=== PATIENT | male | born 1960 | race Caucasian/White ===

== ENCOUNTER → 2019-08-20 | Outpatient (CLI) | payer BC ==
[~2019-08-20] MED LIST: ISOVUE-370 76% 100ML VIAL (Q9967) As Ordered ONE
--- NOTE | 2019-08-20 16:36 | REP ---
INDICATION: Question mass lesion PROCEDURE: CT neck with contrast COMPARISON STUDIES: No comparative studies FINDINGS: There is a mass lesion seen on the left, with expansion and enlargement of the left submandibular gland and enlarged and irregular lymph nodes continuous with the sternocleidomastoid muscle on the left near the angle of the mandible. There is also a separate low density mass posterior to the sternocleidomastoid muscle. These findings are above the marker. There is no definite osseous destruction. Oropharynx, nasopharynx, hypopharynx and larynx appear unremarkable. There is mucosal thickening in the left maxillary sinus, paranasal sinuses and mastoid air cells are otherwise clear. Lung apices are unremarkable. Thyroid glands are unremarkable. IMPRESSION: Prominent irregular and nodular mass lesions on the left are continuous with the left submandibular gland and the left sternocleidomastoid muscle. The findings are concerning for malignancy, there appears to be involvement of several prominent lymph nodes on the left. The largest area of malignancy involving the submandibular gland measures approximately 4 cm in each dimension. Malignancy workup suggested. Electronically Signed by Rob Arrieta MD 08/20/2019 04:27 P
== END ==
LOC: M RAD 15:22
PROVIDERS: ATTEND Otolaryngology
DX: R22.1 Localized swelling, mass and lump, neck (principal)
CPT/HCPCS: 70491; Q9967

== ENCOUNTER → 2019-09-13 | Outpatient (REF) | payer BC | LOC: M LAB REF 15:28 | PROVIDERS: ATTEND Otolaryngology | DX: R22.1 Localized swelling, mass and lump, neck (principal) ==

== ENCOUNTER → 2019-10-07 | Outpatient (REF) | payer BC | LOC: M LAB REF 13:37 | PROVIDERS: ATTEND Otolaryngology | DX: C08.0 Malignant neoplasm of submandibular gland (principal); R22.1 Localized swelling, mass and lump, neck ==

== ENCOUNTER → 2019-10-18 | Outpatient (CLI) | payer BC ==
--- NOTE | 2019-10-19 09:40 | REP ---
PET/CT: HISTORY: Staging secondary neoplasm of the face and neck. 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 COMPARISONS: Comparison soft-tissue CT study of the neck is from August 20, 2019. TECHNIQUE: 51 minutes following the intravenous injection of a 8.23 mCi dose of F-18 FDG, three-dimensional PET scintigraphy is acquired from the skull base to the proximal thighs. Triplanar noncontrast CT scanning is acquired through the same anatomic range for attenuation correction, and image registration with scan parameters optimized to minimize radiation exposure to the patient. PET scintigraphy and CT datasets were fused and displayed on a workstation with multiplanar and projection display capability. PET/CT FINDINGS: There is asymmetric uptake and a slightly asymmetric soft tissue density in the tonsillar pillars, left greater than right. Maximum standard uptake value in the left tonsillar pillar is 17.4 where as that in the right is 5.3. This and the associated adenopathy predominantly left-sided demonstrates that the left tonsillar pillar may be the primary site. There is hypermetabolic adenopathy in the left neck corresponding to the CT findings. This includes the larger of the two adjacent left neck lymph nodes at the angle of the mandible. This solid 3 cm lymph node demonstrates hypermetabolic activity with maximum SUV 16.6. The more cystic of these two lymph nodes demonstrates hypermetabolic uptake along its inferior margin, 8.43. The large submandibular shahbaz mass is hypermetabolic as well maximum SUV value 16.86. There is a cystic necrotic appearing lymph node to the right of midline in the submental region with maximum standard uptake value 3.64. No other hypermetabolic cervical lymphadenopathy is appreciated. There is no abnormal hypermetabolic uptake in the chest. There is some linear fibrosis versus plate-like atelectasis in the right upper lobe. There is a tiny 2-3 mm nodule in the right middle lobe. No abnormal pulmonary parenchymal uptake is seen. In the abdomen and pelvis, there is normal distribution of radiotracer. No abnormal hypermetabolic uptake is seen in the abdomen or pelvis. IMPRESSION: There is bulky hypermetabolic left neck adenopathy as above. There is a necrotic mildly hypermetabolic lymph node to the right of midline in the submental region. There is asymmetrically increased uptake in the tonsillar soft tissues on the left. This is compatible with a primary site in the left tonsillar soft tissues. Electronically Signed by Lebron Puente MD 10/19/2019 12:52 P
== END ==
LOC: M PLARAD 13:17
PROVIDERS: ATTEND Otolaryngology
DX: C77.0 Secondary and unspecified malignant neoplasm of lymph nodes of head, face and neck (principal)
CPT/HCPCS: 78815; A9552

== ENCOUNTER → 2019-11-23 | Outpatient (CLI) | payer BC ==
[~2019-11-23] MED LIST changes: +BYST10TA2 PO; +BYST5TAB2 PO; +HYDR12.55 PO; -ISOVUE-370 76% 100ML VIAL (Q9967) As Ordered ONE; +SIMV40TA20 PO
--- NOTE | 2019-11-23 15:43 | RADONC ---
RADIATION ONCOLOGY CONSULTATION NOTE DATE: 11/23/2019 This is a telemedicine visit. The patient was informed of the risks including security breech, technological failure, inability to perform a comprehensive physical exam which could delay or prevent an accurate diagnosis, and potential complications from treatment decisions rendered over a telemedicine platform. The patient understands and consented to the use of telehealth services phone only. CHART NUMBER: [id number] DIAGNOSIS: Left tonsil cancer. STAGE: III, T2, N3, M0, p16 positive. ECOG PERFORMANCE STATUS: 0 CONSULTATION NOTE: Mr. Pena is presenting to me today for consultation by telephone in light of the COVID-19 restrictions. This patient had initially been scheduled to see me 6 weeks ago on October 13 for consultation, but at that time decided to go to [facility] for treatment and cancelled his appointment with us. The patient was seen down there and in light of the COVID issues and transportation issues has changed his mind and has now decided to be seen up here for treatment. He has not yet had a medical oncology consultation. He, also, has not yet been seen by surgery or interventional radiology for placement of a PEG feeding tube. he is simply now presenting for initial consultation. Mr. 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 HISTORY OF PRESENT ILLNESS: The patient reports that he first noted a mass in his left neck approximately a year or more ago. This slowly increased in size but began growing more rapidly in July of last year to August of this year. He was seen by Dr. Burgos our ENT specialist on 08/02/2019 for workup and recommendations. A fine-needle aspiration of the left neck was done on 09/14/2019 and was nondiagnostic. A repeat was found positive for malignant cells consisting with squamous cell carcinoma. CT scans were done, which were positive for what appeared be a 4 cm sized submandibular shahbaz mass. A PET CT scan was done on 10/18/2019 and showed hypermetabolic adenopathy in the left neck, which included multiple lymph nodes present. There was hypermetabolic uptake in a 3 cm lymph node, which had an SUV value of 16.6. The more cystic of the lymph node showed a hypermetabolic uptake of 8.3 SUV units. A large submandibular shahbaz mass was hypermetabolic with an SUV value of 16.86. There was also uptake in the left tonsil with an SUV value of 17.4. There was no evidence of distant metastatic disease. On 10/14/2019, the patient had been scheduled to see me in consultation but cancelled that and was seen by Dr. Fritz on 10/26/2019. At that time, Dr. Fritz's physical exam noted a 4 cm left submandibular lymph node as well as a left tonsillar pillar enlargement and left neck adenopathy. Laryngoscopic evaluation was undertaken and no lesions were seen in the nasopharynx, floor of mouth, hypopharynx or larynx. Vocal cords were normal in motility. On 11/09/2019, a core needle biopsy was undertaken of the left submandibular area and was positive for invasive squamous cell carcinoma with basaloid features which was p16 positive. CT scan done on 11/09/2019 revealed a 7 cm mass in the left submandibular region affecting the floor of mouth, the inferior mandibular body and the submental region as well as the platysma muscle. There was extensive adenopathy seen on the left at the level 2 and level 3, as well at the level 1 area, and on the right there was smaller right level 2 lymph nodes. The nodes extended to level 5 on the left with small supraclavicular nodes on the left node. There were a few subcentimeter sized pulmonary nodules of unknown clinical significance which were present. These were not hypermetabolic on the PET scan. The patient is edentulous and is now presenting to me for discussion once again of possible combined chemotherapy and radiation as a therapeutic option. PAST MEDICAL HISTORY: The patient's past medical history is positive for hypercholesterolemia. He had right hand surgery. He also has hypertension. ALLERGIES: The patient has NO KNOWN DRUG ALLERGIES. SOCIAL HISTORY: The patient has smoked two packs of cigarettes per day for 18 years. He quit 21 years ago. He drinks alcohol socially. FAMILY HISTORY: The patient's family history is positive for a mother with lung cancer. REVIEW OF SYSTEMS: The patient's review of systems is noncontributory. Denies nausea, vomiting, fevers, chills, night sweats, diplopia, headaches, anxiety or depression, anorexia, weight loss, visual disturbances, chest pain, urinary or bowel difficulties, bone pain, or neurological problems. PHYSICAL EXAMINATION: This was a telephone consultation. Physical exam was deferred at this time as per COVID-19 precautions. MEDICAL NECESSITY: IMRT/IGRT is clinically indicated for the highly conformal dose planning required. The target volume is in close proximity to critical structures, such as the normal brain, brainstem, eyes, optic nerves, spinal cord, parotid glands, and mandible. The volume of interest must be covered with narrow margins to adequately protect immediately adjacent structures. The plan requires interpretation of complex testing such as CT localization. As noted above, special planning (IMRT) and localizing (IGRT) is required and essential to maximally protect sensitive normal tissue structures which cannot be accomplished using conventional 3-dimensional planning. ASSESSMENT: I had a lengthy discussion with this patient and have basically reviewed the previous recommendations of his radiation oncology consultation in [place]. I do agree that this patient would be a candidate for concomitant chemotherapy and radiation therapy. We did discuss the NCCN guidelines and I let him know that an alternative would be surgery followed by radiation or chemoradiation. At this time, the NCCN guidelines support as category 1 a combination of systemic therapy and radiation. We discussed in detail the potential benefits as well as possible acute and chronic sequelae of external beam radiation therapy. We discussed logistics of treatment planning, simulation and subsequent fractionated daily radiation treatments. Luckily the patient is edentulous and we do not have to worry at this time about dental clearance. I am referring the patient to medical oncology for consultation and subsequent coordination of care. In addition, I am scheduling the patient to be seen by our interventional radiologist to set up placement of a feeding tube. The patient is aware that it will be very difficult to swallow without this. This process has been going on for quite some time and we will do everything to expedite treatments at this point. I made clear to the patient that we will do everything in our powered expedite this. He is aware that he cancelled our consultation of 6 weeks ago and we have loss some time. He is reporting now that the tumor is becoming quite disfiguring for his face. Thank you for allowing us participate in the care of this very pleasant gentleman. I will keep you informed of any new developments as they occur. As always, warm regards. cc: MD Jonatan Parsons MD Wesley Hicks, MD Anurag Willson, MD MTDD
== END ==
LOC: M ONCR 12:58
PROVIDERS: ATTEND Radiology Radiation Oncology
DX: C09.9 Malignant neoplasm of tonsil, unspecified (principal)

== ENCOUNTER → 2019-11-26 | Outpatient (CLI) | payer BC ==
[~2019-11-26] MED LIST changes: +LIDOCAINE 1% MDV 20ML VIAL As Ordered ONE; +MIDAZOLAM INJ 2MG/2ML VIAL (J2250 PER 1MG) As Ordered ONE; +ceFAZolin 1GM VIAL (J0690 PER 500MG) As Ordered ONE; +diphenhydrAMINE 50MG/ML VIAL (J1200) As Ordered ONE; +fentaNYL 100 MCG/2 ML INJECTION (J3010) As Ordered ONE
--- NOTE | 2019-11-26 14:52 | IRHP ---
[facility] IR Pre-Procedure H & P General Date of Service: Nov 26, 2019 Procedure: Same Day Surgery Interval History and Physical I have seen the patient and reviewed last H & P performed within 30 days. There is no significant interval change. History of Present Illness Chief Complaint The patient is a 59-year-old male admitted with a reason for visit of Tonsil Ca. PRE-PROCEDURE DIAGNOSIS: tonsil ca HEART: normal rate. LUNGS: normal breathing at rest. ASA Classification ASA Classification: III-Severe systemic dis. Mallampati Score: II NPO: Yes Problems with prior sedation: No Obstructive Sleep Apnea: No Plan moderate sedation Home Medications Scheduled Hydrochlorothiazide (Hydrochlorothiazide), 12.5 MG PO DAILY, (Reported) Nebivolol HCl (Bystolic), 10 MG PO DAILY, (Reported) Nebivolol HCl (Bystolic), 5 MG PO DAILY, (Reported) Simvastatin (Simvastatin), 40 MG PO DAILY, (Reported) GLORIA WILHELM MD Nov 26, 2019 14:52
--- NOTE | 2019-11-26 16:00 | REP ---
IR Ultrasound and fluoroscopy-guided port placement. IR Ultrasound of the neck. IR Moderate sedation. Clinical information: Tongue cancer. Physician: Dr. Landon. Procedure: The patient was advised of the benefits, risks, and alternatives of the procedure and informed consent was obtained. A time-out was performed with verification of the patient's name, MRN, site of procedure and type of procedure to be performed. The patient was positioned in the supine position on the angiographic table. The site was prepped and draped in the usual sterile fashion. Moderate sedation was performed by the physician including the presence of an independent trained observer who assisted and monitored the patient's level of consciousness and physiologic status. Following the administration of Fentanyl and Versed, the physician spent 45 minutes of continuous face to face time with the patient. Ultrasound of the neck reveals a patent and compressible right internal jugular vein. A posting clerk radiograph reveals no gross abnormality. The neck and anterior chest wall were anesthetized with lidocaine. The right internal jugular vein was accessed using a microintroducer needle under ultrasound guidance, via a lateral approach. An 018 wire was advanced into the superior vena cava, the needle was removed and a microsheath was placed. An Amplatz wire was then passed into the inferior vena cava. An incision at the internal jugular vein access site and anterior chest wall were made using a scalpel. An incision was made at the anterior chest wall. A small pocket was created using a combination of blunt and sharp dissection. A tunneling device was then used to pass the catheter from the pocket to the neck puncture site. An 8-Libyan Angiodynamics smart power port was then positioned in the pocket. The catheter was then measured and cut. The introducer sheath was exchanged for a peel-away sheath. The catheter was passed through the peel-away sheath into the internal jugular vein and the peel-away sheath was removed. The port tip was positioned at the cavoatrial junction. The port was then accessed with a Patel needle. The port flushes and aspirates well. The puncture site in the neck was closed. The chest wall incision was then closed with 2-0 Vicryl and 4-0 Monocryl. Glue and Steri-Strips were applied. A sterile dressing was then applied. The patient tolerated the procedure well and was returned to the PRU in stable condition. Estimated blood loss: <5 ml. Complications: none. Conclusion: 1. Successful placement of an 8-Libyan Angiodynamics smart power port via the right internal jugular vein. The port is ready for immediate use. 2. Patient to follow up in IR clinic in 2 weeks. Thank you for this referral. Electronically Signed by Dorcas Landon MD 11/26/2019 03:58 P
[2019-11-26 17:36] VITALS: BP 166/86
== END ==
LOC: M IRPRO 14:02
PROVIDERS: ATTEND Radiology Diagnostic Radiology
DX: C09.9 Malignant neoplasm of tonsil, unspecified (principal); Z79.899 Other long term (current) drug therapy
CPT/HCPCS: 36561; 99152; 99153; C1769; C1788; C1894; J0690; J1200; J1642; J1644; J2250; J3010

== ENCOUNTER → 2019-12-03 | Outpatient (CLI) | payer BC ==
[~2019-12-03] MED LIST changes: +GLUCAGON INJ 1MG VIAL As Ordered ONE; +ISOVUE-300 61% 50ML VIAL As Ordered ONE; +LIDOCAINE 2% JELLY 30ML As Ordered ONE
--- NOTE | 2019-12-03 12:42 | IRHP ---
[facility] IR Pre-Procedure H & P General Date of Service: Dec 03, 2019 Procedure: Same Day Surgery Interval History and Physical I have seen the patient and reviewed last H & P performed within 30 days. There is no significant interval change. History of Present Illness Chief Complaint The patient is a 59-year-old male admitted with a reason for visit of Malignant Neoplasm Of Tonsil. PRE-PROCEDURE DIAGNOSIS:head and neck cancer HEART: normal rate. LUNGS: normal breathing at rest. ASA Classification ASA Classification: II-Mild systemic disease Mallampati Score: II NPO: Yes Problems with prior sedation: No Obstructive Sleep Apnea: No Plan moderate sedation Home Medications Scheduled Hydrochlorothiazide (Hydrochlorothiazide), 12.5 MG PO DAILY, (Reported) Nebivolol HCl (Bystolic), 10 MG PO DAILY, (Reported) Nebivolol HCl (Bystolic), 5 MG PO DAILY, (Reported) Simvastatin (Simvastatin), 40 MG PO DAILY, (Reported) VS, I&O, 24H, Fishbone Vital Signs/I&O Vital Signs Date Time Temp Pulse Resp B/P (MAP) Pulse Ox O2 Delivery O2 Flow Rate FiO2 12/03/19 11:45 97.8 63 16 100 Room Air GLORIA WILHELM MD Dec 03, 2019 12:42
--- NOTE | 2019-12-03 13:30 | POST-OPPD ---
Postoperative Procedure Note Date Of Procedure: Dec 03, 2019 Time Of Procedure: 13:29 PREOPERATIVE DIAGNOSIS: head and neck ca POSTOPERATIVE DIAGNOSIS: same FINDINGS: lon stomach location PROCEDURE: G tube placed. may use after 24 hours SURGEON: savanna ANESTHESIA: mod sed ESTIMATED BLOOD LOSS: < 5 ml COMPLICATIONS: none POSTOPERATIVE CONDITION: stable GLORIA WILHELM MD Dec 03, 2019 13:30
--- NOTE | 2019-12-03 14:13 | REP ---
IR Gastrostomy catheter placement with fluoroscopy guidance. IR Moderate sedation. Clinical information: Head and neck cancer. Physician: Dr. Landon. Procedure: The patient was advised of the benefits, risks and alternatives of the procedure and informed consent was obtained. The time-out was performed with verification of the patient's name, MRN, site of procedure and type of procedure to be performed. The patient was positioned in the supine position on the angiographic table. The site was prepped and draped in the usual sterile fashion. A 5-Gibraltarian Kumpe catheter in conjunction with a Glidewire was inserted through the nostril under fluoroscopy guidance, down the esophagus into the stomach. The wire was removed. The catheter was taped to the nose. Moderate sedation was performed by the physician including the presence of an independent trained observer who assisted in monitoring the patient's level of consciousness and physiologic status. Following the administration of Versed and Fentanyl, the physician spent 60 minutes of continuous face to face time with the patient. A cruise agent radiograph reveals kumpe catheter tip in the expected location of the stomach. 1 mg of glucagon was administered intravenously. The stomach was insufflated and distended with air through the nasogastric tube. The soft tissues overlying the anticipated puncture site were anesthetized with lidocaine. A gastropexy needle was advanced into the stomach and positioning was confirmed with contrast injection. The gastropexy suture was deployed and secured in the usual fashion. A total of three gastropexy sutures were deployed under fluoroscopy guidance. An 18 gauge needle was advanced into the body of the stomach under fluoroscopy guidance. Contrast was injected through the needle documenting intragastric position. An Amplatz wire was advanced into the stomach. After serial dilation under fluoroscopy guidance, a 20-Gibraltarian peel-away sheath was advanced over the wire into the stomach under fluoroscopy guidance. An 18-Gibraltarian Struq gastrostomy catheter was then advanced through the peel-away sheath under fluoroscopy guidance. Contrast was injected through the gastrostomy catheter confirming position within the stomach. The balloon was insufflated and retracted to the anterior stomach wall. The catheter bumper was positioned to sandwich the anterior abdominal wall. The catheter was placed gravity drainage. The nasogastric catheter was removed. The patient tolerated the procedure well and was returned to the inpatient unit in stable condition. EBL: Less than 5 ml. Complications: None. Impression: 1. Successful percutaneous placement of 18-Gibraltarian gastrostomy catheter. Catheter to remain to gravity drainage for 24 hours. 2. Catheter may be used 24 hours past placement. The gastropexy sutures will dissolve within 6 weeks and the buttons will fall-off. 3. Patient to follow up in IR clinic in 2 weeks. Thank you this referral. Electronically Signed by Dorcas Landon MD 12/03/2019 02:11 P
[2019-12-03 15:20] VITALS: BP 163/90
== END ==
LOC: M IRPRO 11:40
PROVIDERS: ATTEND Radiology Radiation Oncology
DX: C09.9 Malignant neoplasm of tonsil, unspecified (principal); Z79.899 Other long term (current) drug therapy
CPT/HCPCS: 49440; 99152; 99153; C1729; C1769; C1887; C1894; J0690; J1200; J1610; J2250; J3010; Q9967

== ENCOUNTER → 2019-12-09 | Outpatient (RCR) | payer BC ==
--- NOTE | 2019-12-01 10:53 | RADONC ---
RADIATION ONCOLOGY SIMULATION NOTE DATE: 12/01/2019 CHART #: [id number] Mr. Pena was taken to the CT scan for CT simulation of his head and neck field. CT was accomplished without difficulty or discomfort. Radiation treatment planning is underway and radiation treatments will begin subsequently. An immobilization device was created and will be used throughout the course of treatment. It was created without difficulty or discomfort. A mask was also included. I was physically present throughout the course of CT simulation.
--- NOTE | 2019-12-05 09:35 | RADONC ---
RADIATION ONCOLOGY PROGRESS NOTE DATE: 12/03/2019 CHART #: [id number] DIAGNOSIS: Left tonsillar cancer. I finally saw Mr. Pena last week in consultation on November 22. Unfortunately, by that time, the patient had delayed his consultation by more than 6 weeks. He was originally scheduled to see me on October 13, but cancelled his appointment and decided to undergo treatments at [facility]. A PET scan was done on 10/18/2019 in this institution which showed very advanced disease in the left neck as well as the submental region crossing into the right neck. Unfortunately, the patient decided not to be treated here and went away. Again, I saw him last week on the and he underwent CT simulation on Friday this week, 12/01/2019. I had discussed with him at the time of consultation the fact that I was concerned about this very extensive delay as well as the fact that he had not yet had a medical oncology consultation or placement of his PEG feeding tube. I also explained that now that he has decided not to be treated to [place] we need to get insurance authorization, but we will do everything we can to expedite his overall management. When I saw the patient at simulation, one can see the huge neck mass which is involving the skin and protruding from his left neck. The patient does realize that this has grown significantly over the last 2 months[address] We did the CT simulation and we are working on treatment planning at this time. We utilized our [employer] software to merge his PET/CT scan with the present treatment planning CT scan. Once this was merged, it was quite remarkable at the increase in size of his disease burden. We of course will base our new treatment planning on the present disease burden as well as potential spread sites. This of course will lead to a large volume of the head and neck region receiving the high dose area, but at this point there are no alternatives. At the rate of growth I am seeing with the difference between his PET scan from almost 2 months ago to his CT simulation on Friday, one needs to be concerned about the possibility of metastatic disease as well. Metastatic disease will not change our treatment plan at this time. We cannot delay any treatments and we will continue to expedite initiation of therapy. Even if metastatic sites have developed in the lungs, we need to control the head and neck region. His skin breakdown and serious consequences will result otherwise. We are including a significant portion of the mandible in our treatment field as the tumor appears to be involving it as well.
[~2019-12-09] MED LIST changes: -GLUCAGON INJ 1MG VIAL As Ordered ONE; -ISOVUE-300 61% 50ML VIAL As Ordered ONE; -LIDOCAINE 1% MDV 20ML VIAL As Ordered ONE; -LIDOCAINE 2% JELLY 30ML As Ordered ONE; -MIDAZOLAM INJ 2MG/2ML VIAL (J2250 PER 1MG) As Ordered ONE; +ONDA4TAB6 PO; +PROC5TA PO; +SILV40CR TOP; -ceFAZolin 1GM VIAL (J0690 PER 500MG) As Ordered ONE; -diphenhydrAMINE 50MG/ML VIAL (J1200) As Ordered ONE; -fentaNYL 100 MCG/2 ML INJECTION (J3010) As Ordered ONE
== END ==
LOC: M ONCR 12-01 08:04
PROVIDERS: ATTEND Radiology Radiation Oncology
DX: C09.9 Malignant neoplasm of tonsil, unspecified (principal)

== ENCOUNTER → 2019-12-14 | Outpatient (POV) | payer BC ==
--- NOTE | 2019-12-15 19:31 | IRPN ---
[facility] IR Progress Note IR Progress Note DATE: December 14, 2019 Telemedicine consult FOLLOW-UP: status post port and Gastrostomy tube placement. Port being used without issues. Denies pain swelling or discharge at site. Flushing peg tube everyday without issues. Still eating and drinking normally. Patient denies swelling, pain or discharge from gastrostomy site. ON EXAMINATION: video chat: Port site appears to be healing well. No redness or discharge. PEG site looks healthy. Buttons will fall off by themselves in 6 weeks. IMPRESSION: Doing well status post port and Gastrostomy placement. No further follow up scheduled unless initiated by patient and/or referring provider. Thank you for this referral Allergies Coded Allergies: No Known Allergies (Unverified , 12/09/19) GLORIA WILHELM MD December 15, 2019 19:31
== END ==
LOC: M TMIRPOV 10:04
PROVIDERS: ATTEND Radiology Diagnostic Radiology
DX: Z45.1 Encounter for adjustment and management of infusion pump (principal)

== ENCOUNTER 2020-01-07 08:52 | Outpatient (RCR) | payer BC ==
--- NOTE | 2019-12-15 16:26 | RADONC ---
RADIATION ONCOLOGY PROGRESS NOTE DATE: 12/13/2019 CHART NUMBER: [id number] PROGRESS NOTE: Mr. Pena is presently at a dose of 600 cGy to his head and neck region and is tolerating treatments quite well at this point with no complaints related to his radiation therapy. He is having no sore throat or other issues at this time that are new. REVIEW OF SYSTEMS: The patient's review of systems is noncontributory. Denies nausea, vomiting, fevers, chills, night sweats, diplopia, headaches, anxiety or depression, anorexia, weight loss, visual disturbances, chest pain, urinary or bowel difficulties, bone pain, or neurological problems. PHYSICAL EXAMINATION: The patient's skin shows no evidence of radiation change present. There is no evidence of mucositis. Basically his physical exam is unchanged. Mr. Pena is tolerating treatments quite well and radiation will continue as scheduled.
--- NOTE | 2019-12-21 11:27 | RADONC ---
RADIATION ONCOLOGY PROGRESS NOTE DATE OF SERVICE: 12/20/2019 CHART NUMBER: [id number]. PROGRESS NOTE: Mr. Pena is presently at a dose of 1600 cGy to his left tonsil and neck and is tolerating treatments quite well at this point with no significant difficulties related to his radiation therapy. He is having no significant pain on swallowing. He reports that his neck mass is decreased in size significantly. He also reports that it is now much softer than it was.. REVIEW OF SYSTEMS: The patient's review of systems is largely otherwise noncontributory. He denies nausea, vomiting, fevers, chills, night sweats, diplopia, headaches, anxiety or depression, anorexia, weight loss, visual disturbances, chest pain, urinary or bowel difficulties, bone pain, or neurological problems. PHYSICAL EXAMINATION: The patient's lesion has indeed decreased in size. His skin is in good condition with no evidence of moist or dry desquamation. There is just minimal mucositis present. The remainder of his physical exam remains unchanged. Mr. Pena is tolerating treatments quite well, and radiation will continue as scheduled.
--- NOTE | 2019-12-29 07:23 | RADONC ---
RADIATION ONCOLOGY PROGRESS NOTE DATE: 12/27/2019 CHART #: [id number] Mr. Pena is presently at a dose of 2400 cGy to his tonsil and neck and is tolerating treatments quite well at this point with no significant difficulties related to his radiation therapy, other than some discomfort upon swallowing. REVIEW OF SYSTEMS: The patient's review of systems is positive for swallowing discomfort but is otherwise noncontributory. Denies nausea, vomiting, fevers, chills, night sweats, diplopia, headaches, anxiety or depression, anorexia, weight loss, visual disturbances, chest pain, urinary or bowel difficulties, bone pain, or neurological problems. PHYSICAL EXAMINATION: The patient's skin is in good condition with no evidence of moist or dry desquamation. His oral cavity shows some mild mucositis. The remainder of his physical exam remains unchanged. Mr. Pena is tolerating treatments quite well and radiation will continue as scheduled.
[~2020-01-07 08:52] MED LIST changes: +MAGICMW SSP
--- NOTE | 2020-01-07 17:30 | RADONC ---
RADIATION ONCOLOGY PROGRESS NOTE DATE: 01/04/2020 CHART NUMBER: [id number] PROGRESS NOTE: Mr. Pena is presently at a dose of 3400 cGy to his left tonsil and neck and is tolerating treatments quite well at this point with no significant difficulties related to his radiation therapy other than some discomfort upon swallowing. REVIEW OF SYSTEMS: The patient's review of systems is positive for some discomfort upon swallowing, but is otherwise noncontributory. Denies nausea, vomiting, fevers, chills, night sweats, diplopia, headaches, anxiety or depression, anorexia, weight loss, visual disturbances, chest pain, urinary or bowel difficulties, bone pain, or neurological problems. PHYSICAL EXAMINATION: The patient's skin is in good condition with no evidence of moist or dry desquamation. There is some irradiation and erythema present. His oral cavity shows some mild mucositis. The remainder of his physical exam remains unchanged. Mr. Pena is tolerating treatment quite well and radiation will continue as scheduled.
[2020-01-17] MEDS ORDERED: PERC5TAB12 PO (09:26)
== END 2020-01-09 ==
LOC: M ONCR 08:52
PROVIDERS: ATTEND Radiology Radiation Oncology
DX: C09.9 Malignant neoplasm of tonsil, unspecified (principal)

== ENCOUNTER 2020-01-28 08:54 | Outpatient (RCR) | payer BC ==
--- NOTE | 2020-01-16 08:10 | RADONC ---
RADIATION ONCOLOGY PROGRESS NOTE DATE: 01/10/2020 CHART NUMBER: [id number] PROGRESS NOTE: Mr. Pena is presently at a dose of 4200 cGy to his cervical nodes and left tonsil and is tolerating his treatments quite well at this point with some discomfort upon swallowing and a sore throat. He is using triple mix. REVIEW OF SYSTEMS: The patient's review of systems is positive for throat discomfort but is otherwise noncontributory. Denies nausea, vomiting, fevers, chills, night sweats, diplopia, headaches, anxiety or depression, anorexia, weight loss, visual disturbances, chest pain, urinary or bowel difficulties, bone pain, or neurological problems. PHYSICAL EXAMINATION: The patient's weight today is 193.3 pounds, down just 1 pound since last week. His skin shows some tanning and erythema present. There is a marked reduction in the size of his neck mass. His oral cavity shows mucositis. The remainder of his physical exam remains unchanged. Mr. Pena is tolerating his treatments fairly well and radiation will continue as scheduled.
--- NOTE | 2020-01-20 23:11 | RADONC ---
RADIATION ONCOLOGY PROGRESS NOTE DATE: 01/17/2020 CHART NUMBER: [id number] Mr. Pena is presently at a dose of 5200 cGy to his left tonsil and neck, and is tolerating treatments with some pain, especially when trying to swallow. The patient's review of systems is positive for pain in the oral cavity and throat when swallowing but also on the skin. Also positive for weight loss. It is otherwise noncontributory. He denies nausea, vomiting, fevers, chills, night sweats, diplopia, headaches, anxiety or depression, visual disturbances, chest pain, urinary or bowel difficulties, bone pain, or neurological problems. PHYSICAL EXAMINATION: The patient's skin shows brisk erythema and tanning present. There is also some dry desquamation bilaterally. His oral cavity shows mucositis. Of note, the neck mass appears to be with a necrotic-type plug left under the lower chin. Clearly this is an excellent response. The remainder of his physical exam remains largely unchanged except, of course, for his weight, which is down 2 pounds from last week and a total of 3 pounds over the past 2 weeks to 191.2 pounds. Mr. Pena is tolerating his treatments with discomfort. I sent in a prescription for Percocet and radiation will continue as scheduled.
--- NOTE | 2020-01-26 09:38 | RADONC ---
RADIATION ONCOLOGY PROGRESS NOTE: DATE OF SERVICE: 01/24/2020 CHART NUMBER: [id number] Mr. Pena is presently at a dose of 6200 cGy to his left tonsil and neck mass and is tolerating his treatments quite well. He continues to have difficulty swallowing and weight loss. REVIEW OF SYSTEMS: The patient's review of systems is positive for as difficulty swallowing and weight loss but is otherwise largely noncontributory. He denies nausea, vomiting, fevers, chills, night sweats, diplopia, headaches, anxiety or depression, anorexia, weight loss, visual disturbances, chest pain, urinary or bowel difficulties, bone pain, or neurological problems. PHYSICAL EXAMINATION: The patient's skin shows erythema and tanning present but overall is in generally good condition. His oral cavity shows some mucositis. The neck mass appears to have an excellent result. It is a scab-like now in nature. The remainder of his physical exam remains unchanged. Mr. Pena is tolerating treatments quite well and radiation will continue as scheduled.
[~2020-01-28 08:54] MED LIST changes: +PERC5TAB12 PO
--- NOTE | 2020-02-01 16:14 | RADONC ---
RADIATION ONCOLOGY TREATMENT SUMMARY DATE: 01/28/2020 CHART NUMBER: [id number] DIAGNOSIS: Left tonsil cancer. STAGE: III, T2, N3, M0, P16 positive. ECOG PERFORMANCE STATUS: 0 TREATMENT SUMMARY: Mr. Pena is a very pleasant 59-year-old white male with the diagnosis of a left tonsillar carcinoma and significant lymphadenopathy who presented to us for consideration of definitive external beam radiation therapy with IMRT/IGRT. We treated the patient to his primary site and involved lymph nodes for a total dose of 7000 cGy delivered in 35 fractions of 200 cGy each over 47 elapsed days from 12/09/2019 through 01/28/2020. The patient's primary site and lymph nodes were treated on a linear accelerator utilizing a 6 MV photon beam via IMRT/IGRT. The uninvolved lymph nodes were treated to a dose of 5000 cGy. Mr. Pena tolerated his treatments quite well with a remarkable response. The patient is scheduled see me again in 1 month for further followup. He will also continue to be followed by his other physicians as well. cc: MD Jonatan Parsons MD Wesley Hicks, MD Anurag Singh, MD
== END 2020-02-08 ==
LOC: M ONCR 08:54
PROVIDERS: ATTEND Radiology Radiation Oncology
DX: C09.9 Malignant neoplasm of tonsil, unspecified (principal)

== ENCOUNTER → 2020-02-22 | Outpatient (CLI) | payer BC ==
[~2020-02-22] MED LIST changes: +ISOVUE-370 76% 100ML VIAL As Ordered ONE; -PROC5TA PO; +PROC5TAB57 PO
--- NOTE | 2020-02-22 10:07 | REPVR ---
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 Radiation optimization: All CT scans at this facility use at least one of these dose optimization techniques: automated exposure control; mA and/or kV adjustment per patient size (includes targeted exams where dose is matched to clinical indication); or iterative reconstruction. Contrast material: ISOVUE 370; Contrast volume: 75 ml; Contrast route: INTRAVENOUS (IV); COMPARISON: CT Neck with contrast 08/20/2019 4:10 PM FINDINGS: Nasopharynx: Unremarkable. Oropharynx: Unremarkable. No significant tonsillar enlargement. Hypopharynx: Unremarkable. Larynx: Edema of the epiglottis and aryepiglottic folds may reflect radiation change. Retropharyngeal space: Unremarkable. Submandibular/Parotid glands: The previously apparent large, infiltrative soft tissue mass within the left submandibular soft tissues infiltrating the floor of mouth musculature and submandibular gland has significantly decreased in size. Thyroid: Normal. No enlarged or calcified nodules. Lymph nodes: Bulky left level 2 metastatic lymph nodes have significantly decreased in size and are no longer pathologically enlarged. There is no new or progressive lymphadenopathy. Trachea: Visualized trachea is unremarkable. Lungs: Unremarkable as visualized. Bones/joints: Unremarkable. No acute fracture. Soft tissues: There is ill-defined soft tissue infiltration within this area. IMPRESSION: Significant interval decrease in size of infiltrative left submandibular soft tissue mass. Interval resolution of associated adenopathy, with small nerve lymph nodes persisting. Presumed there in ALLAN radiation changes. Electronically signed by: Mónica Hernandez On 02/22/2020 10:06:46 AM
--- NOTE | 2020-02-22 10:09 | REPVR ---
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 Radiation optimization: All CT scans at this facility use at least one of these dose optimization techniques: automated exposure control; mA and/or kV adjustment per patient size (includes targeted exams where dose is matched to clinical indication); or iterative reconstruction. Contrast material: ISOVUE 370; Contrast volume: 75 ml; Contrast route: INTRAVENOUS (IV); COMPARISON: CT MAXILLOFACIAL W/ CONTRAST - OUTSIDE PRIOR 11/09/2019 8:34 AM FINDINGS: Orbits: Orbits are normal. Globes are unremarkable. Bones/joints: No acute fracture. Sinuses: Normal. No air-fluid levels. Lymph nodes: Bulky, necrotic metastatic lymph nodes have significantly decreased and are no longer enlarged. Soft tissues: Large, infiltrative left submandibular space mass involving the floor of mouth musculature, submandibular gland and superficial soft tissues has significantly decreased in size in the interval with ill-defined soft tissue induration persisting. Radiation changes involve the visualized laryngeal soft tissues. IMPRESSION: Significant interval decrease in previously apparent complex left submandibular space mass, with soft tissue induration persisting. Resolved metastatic adenopathy. Electronically signed by: Mónica Hernandez On 02/22/2020 10:09:09 AM
== END ==
LOC: M RAD 08:23
PROVIDERS: ATTEND Internal Medicine Hematology & Oncology
DX: C09.9 Malignant neoplasm of tonsil, unspecified (principal)
CPT/HCPCS: 70487; 70491; Q9967

== ENCOUNTER → 2020-03-01 | Outpatient (CLI) | payer BC ==
[~2020-03-01] MED LIST changes: -ISOVUE-370 76% 100ML VIAL As Ordered ONE; +NYST50SS
== END ==
LOC: M ONCR 09:12
PROVIDERS: ATTEND Radiology Radiation Oncology
DX: C09.9 Malignant neoplasm of tonsil, unspecified (principal); C77.0 Secondary and unspecified malignant neoplasm of lymph nodes of head, face and neck

== ENCOUNTER → 2020-03-06 | Outpatient (CLI) | payer BC ==
[~2020-03-06] MED LIST changes: +ISOVUE-300 61% 50ML VIAL As Ordered ONE; +LIDOCAINE 1% MDV 20ML VIAL As Ordered ONE; +MIDAZOLAM INJ 2MG/2ML VIAL (J2250 PER 1MG) As Ordered ONE; +ceFAZolin 1GM VIAL (J0690 PER 500MG) As Ordered ONE; +diphenhydrAMINE 50MG/ML VIAL (J1200) As Ordered ONE; +fentaNYL 100 MCG/2 ML INJECTION (J3010) As Ordered ONE
--- NOTE | 2020-05-04 13:28 | POST-OPPD ---
Postoperative Procedure Note Date Of Procedure: Mar 06, 2020 Time Of Procedure: 16:00 Full note Port Removal / Explant G-tube removal. Clinical Information:Tonsillar cancer. Treatment complete. No longer needs port or G-tube. Physician: Dr. Landon Procedure: The patient was advised of the benefits, risks, and alternatives of the procedure and informed consent was obtained. A time out was performed with verification of the patient's name, MRN, site of procedure, and type of procedure to be performed. The patient was positioned in the supine position on the angiographic table. The site was prepped and draped in the usual sterile fashion. Moderate sedation was performed by the physician including the presence of an independent trained observer who assisted in monitoring the patient's level of consciousness and physiological status. Following the administration of fentanyl and Versed the physician spent 30 minutes of continuous [id number] time with the patient. A fairing man radiograph reveals a right-sided port. The soft tissues overlying the port were anesthetized with lidocaine. An incision was made over the port using a 15 blade scalpel in the location of the prior incision. The catheter was then freed with blunt dissection and extracted. Pressure was applied to obtain hemostasis. The port was then freed with blunt dissection and subsequently removed. There were no signs of infection. After hemostasis was achieved, the incision was closed with interrupted deep 3-0 Vicryl sutures and Monocryl, glue and Steri-Strips The site was cleansed and covered with a sterile dressing. The percutaneously placed G-tube was exposed. The balloon was deflated and the catheter was removed. A sterile dressing was applied to the site. The patient tolerated the procedure well and was returned to the PRU in stable condition. EBL:Less than 5 mL Complications:None Conclusions: 1. Successful explant of a right-sided port. 2. No signs of infection. 3. G-tube removal. Thank you for this referral GLORIA LANDON MD May 04, 2020 13:28
== END ==
LOC: M IRPRO 12:15
PROVIDERS: ATTEND Radiology Diagnostic Radiology
DX: Z45.2 Encounter for adjustment and management of vascular access device (principal); Z43.1 Encounter for attention to gastrostomy; C09.9 Malignant neoplasm of tonsil, unspecified; C77.9 Secondary and unspecified malignant neoplasm of lymph node, unspecified; I10 Essential (primary) hypertension; E78.00 Pure hypercholesterolemia, unspecified; Z79.899 Other long term (current) drug therapy
CPT/HCPCS: 36590; 76000; 99152; 99153; J0690; J1644; J2250; J3010

== ENCOUNTER → 2020-05-09 | Outpatient (CLI) | payer BC ==
[~2020-05-09] MED LIST changes: -ISOVUE-300 61% 50ML VIAL As Ordered ONE; -LIDOCAINE 1% MDV 20ML VIAL As Ordered ONE; -MIDAZOLAM INJ 2MG/2ML VIAL (J2250 PER 1MG) As Ordered ONE; -ceFAZolin 1GM VIAL (J0690 PER 500MG) As Ordered ONE; -diphenhydrAMINE 50MG/ML VIAL (J1200) As Ordered ONE; -fentaNYL 100 MCG/2 ML INJECTION (J3010) As Ordered ONE
--- NOTE | 2020-05-16 11:28 | REP ---
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 Status post chemo and radiation therapy. COMPARISON: PET CT study from 10/18/2019. TECHNIQUE: 46 minutes following the intravenous injection of an 8.27 mCi dose of F18 fluorodeoxyglucose (FDG), three-dimensional PET CT imaging is acquired from the skull base to the proximal thighs. PET CT FINDINGS: The head and neck soft tissues are unremarkable on PET scintigraphy images except for some mild normal variant skeletal muscle uptake. The previously noted hypermetabolic adenopathy, left tonsillar, and submandibular uptake has resolved. There is no abnormal hypermetabolic uptake in the chest. No pulmonary parenchymal hypermetabolic uptake or hilar or mediastinal adenopathy is seen. In the abdomen and pelvis, normal hepatic, splenic, gastrointestinal, and genitourinary FDG accumulation is seen. No abnormal hypermetabolic uptake is seen in the abdomen or pelvis. IMPRESSION: Negative PET scintigraphy. The previously noted head and neck abnormalities are resolved on todays PET scintigraphy and accompanying CT. [id number]
== END ==
LOC: M PLARAD 13:22
PROVIDERS: ATTEND Otolaryngology
DX: C09.9 Malignant neoplasm of tonsil, unspecified (principal)
CPT/HCPCS: 78815; A9552

== ENCOUNTER → 2020-06-23 | Outpatient (CLI) | payer BC ==
--- NOTE | 2020-06-23 10:11 | RADONC ---
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 He is s/p chemoradiation 70 Gy in 35 fractions completed 01/27/20. He had post-treatment PET-CT on 05/09/20 demonstrating CR. Diagnosis/Treatment History Oncologic History Per Dr. Schmitt's recent note: Mr. Pena has a history of tonsillar cancer diagnosed in 2018 when he felt a lump under the left mandible. Initially, it went down on its ownand he did not seek medical attention. The patient had recurrence in 2019 and started noticing palpable abnormality in the bottom of the left mandible, which increased over 3 months. The patient was seen by Dr. Agrawal on August 02, 2019. CT scan August 20, 2019 revealed a large lymph node and workup revealed squamous cell carcinoma on fine needle aspiration. CT scan showed 4 cm submandibular nodular mass. A PET CT scan revealed a big mass, which was p16 positive. The patient was seen by radiation oncology, Dr. Fritz, at [facility] on 10/26/2019. Dr. Fritz noted 4 cm left submandibular lymph node, as well as left tonsillar pillar enlargement and left neck adenopathy. Laryngoscopic evaluation revealed no lesion in the nasopharynx, floor of the mouth, hypopharynx or larynx. Vocal cords were normal. PET scan from 10/18/2019at [facility] revealed hypermetabolic adenopathy left neck. This included multiple lymph nodes and uptake increased in the middle lymph node SUV of 16.6. The patient was found to have more cervical lymph node showing hypermetabolic uptake at 8.3 SUV. A large submandibular shahabz mass with SUV of 16.86, uptake left tonsil with SUV of 17.4. No evidence of distant metastatic disease. CT of the neck 11/09/2019 greater than 7 cm x 4.8 cm mass in the left submandibular region affecting the floor of the mouth, the inferior mandibular body and the submental region, as well as platysmal muscle. Extensive lymphadenopathy in the left at the level of 2 and 3, as well as level 1. CT of the chest, 11/09/2019, there were a few sub cm size pulmonary nodules of unknownclinical significance. Not hypermetabolic at PET scan. Pathology [facility],11/09/2019, core needle biopsy of left submandibular area lymph node positive for invasive squamous cell carcinoma and basaloid features with p16 positive, p63 positive, Ki-67 is 80%. 12/09/19-01/28/20 70 Gy in 35 fractions (unilateral neck RT) with weekly carboplatin Interval History Patient is doing well overall. His appetite has returned and his mucositis has resolved such that he is able to wear his dentures all day, which facilitates more meals. He is able to eat a hamburger. He is plagued by dry mouth, drinks water through the day. No throat pain or trismus. Has been using nystatin QHS, for thrush which was present when he saw Dr. Aubrey easton. He has 8 lb weight loss since February, PEG tube removed. Notes no new lumps or bumps in neck. Current Therapy Surveillance Stage T2N3M0 HPV+ SCC left tonsil stage III Social History: Former smoker Former drinker Allergies / Meds Allergies: Coded Allergies: No Known Allergies (Unverified , 12/09/19) Home Meds Active Scripts Oxycodone HCl/Acetaminophen (Percocet 5-325 mg Tablet) 1 Each Tablet, 1 TABS PO Q6H PRN for PAIN MDD 8, #40 TAB 0 Refills Prov:Maciej Guerrero 01/17/20 Magic Mouthwash (First-Mouthwash Blm) 1 Ea Susp, 10 ML SSP QID PRN for MUCOSITIS, #240 ML 5 Refills (Diphenhydramine/maalox/lidocaine 1:1:1) May compound if kit unavailable/not covered by insurance Prov:BJORN MATTHEW MD 12/23/19 Silver Sulfadiazine (Silvadene) 400 Gm Cream..g., 1 APLCT TOP BID for 15 Days, #400 GRAM 2 Refills apply to affected area(s) Prov:BJORN MATTHEW MD 12/09/19 Prochlorperazine (Prochlorperazine Maleate) 5 Mg Tablet, 1 TAB PO TID for nausea for 30 Days, #30 TAB 1 Refill Prov:BJORN MATTHEW MD 12/09/19 Ondansetron (Ondansetron Odt) 4 Mg Tab.rapdis, 4 MG PO QIDP PRN for nausea/ vomiting for 30 Days, #40 TAB 1 Refill Prov:BJORN MATTHEW MD 12/09/19 Reported Medications Nystatin (Nystatin Oral Susp) 100,000 Unit/1 Ml Oral.susp 06/23/20 Hydrochlorothiazide (Hydrochlorothiazide) 12.5 Mg Tablet, 12.5 MG PO DAILY, TAB 11/23/19 Simvastatin (Simvastatin) 40 Mg Tablet, 40 MG PO DAILY, TAB 11/23/19 Nebivolol HCl (Bystolic) 5 Mg Tablet, 5 MG PO DAILY, TAB 11/23/19 Review of Systems Review of Systems Constitutional: Denies: Fever, Night Sweats, Weakness Eyes: Denies: Pain, Vision change HEENT: Denies: Head Aches, Ear Pain, Dysphagia, Sore Throat Skin: Denies: Rash Pulmonary: Denies: Dyspnea, Cough Cardiovascular: Denies: Chest Pain, Palpitations Gastrointestinal: Denies: Nausea, Vomiting, Abdominal Pain Hematologic: Denies: Bruising, Bleeding Excessively Endocrine: Denies: Heat Intolerance, Cold Intolerance Musculoskeletal: Denies: Neck pain, Back pain Neurological: Denies: Weakness, Numbness Psych: Denies: Mood Normal, Anxiety, Depression Physical Examination Vital Signs Ht 71" Wt 163 lb BMI 22.7 T 98 P 90 RR 18 BP 137/83 O2 91% Pain 0 Fatigue 0 General Exam: Positive: Alert, Cooperative; Negative: No Acute Distress Eye Exam: Positive: PERRLA, EOMI ENT EXAM: Positive: Atraumatic, Mucous membr. moist/pink, Pharynx Normal (No thrush), Tongue Midline, Other ENT (Bimanual exam reveals fibrosis in the FOM without focal lesions. No palpable buccal or tinsilar lesions, no palpable tongue base lesions. Oral mucoa is pink and healthy. No trismus appraciated.); Negative: Pharyngeal Edema Neck Exam: Positive: Other (There is persistent hyperpigmentation of the left neck with the exception of a small patch of scarred ulceration in the left submandibular area); Negative: Lymphadenopathy Chest Exam: Positive: Clear to auscultation, Normal air movement Heart Exam: Positive: Rate Normal, Regular Rhythm Abdomen Exam: Positive: Normal bowel sounds, Soft; Negative: Tenderness Extremity Exam: Negative: Edema Skin Exam: Positive: Nl turgor and temperature; Negative: Rash Neuro Exam: Positive: Normal Gait, Normal Speech, Cranial Nerves 3-12 NL Psych Exam: Positive: Mental status NL, Mood NL; Negative: Anxiety Other Physical Findings Laryngoscopy: The patient provided verbal consent to be scoped. Cetacaine was introduced in the left nostril to anesthetize the pharynx. The scope was introduced and pass easily to the nasopharynx, there were no lesions present only healthy mucosa. The posterior pharyngeal wall had adherent clear mucus, no ulceration or lesions. The tongue base was visualized, the right tongue base and vallecula appeared entirely normal on the inferolateral left tongue base there is a small patch of persistent mucositis, which appears to be healing, It is pink-whitish and very small. Will attend to this area on subsequent exams. The epiglottis appears edematous with a blunt rim. The larynx appears mobile on phonation without lesions. The pyriform sinuses are patent and free of lesions BL. The scope was withdrawn. The procedure was well tolerated. Diagnostic and Laboratory Diagnostic Review Radiologic images, relevant labs and pathology reports were personally reviewed and discussed with Mr. Pena. Assessment and Plan Impression Assessment Mr. 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 He is s/p chemoradiation 70 Gy in 35 fractions completed 01/27/20. He had post-treatment PET-CT on 05/09/20 demonstrating CR. He is doing well overall. He has recovered from the acute side effects of treatment. He is eating virtually all foods without much difficulty. I suspect he will have permanent xerostomia based on my review of his treatment plan with the left parotid and submandibular glands (by necessity) receiving well in excess of tolerance. On scope exam today he has a blunted and edematous epiglottis, but he stated he rarely chokes. He has no evidence of recurrent lesions on exam today. I will continue to scope him q3m for the first 2 years, then we can consider extending or splitting follow up with Dr. Burgos to save him appointments. Performance Status ECOG 0 Plan Follow up in 3 months Recommend biotene QHS Can stop nystatin as no thrush on exam Thyroid function tests at next visit for survivorship care Mr. Pena was encouraged to call with questions or concerns in the interim period. LILIAM MEJIA MD Jun 23, 2020 10:11
== END ==
LOC: M ONCR 08:57
PROVIDERS: ATTEND General Practice
DX: C09.9 Malignant neoplasm of tonsil, unspecified (principal); C77.0 Secondary and unspecified malignant neoplasm of lymph nodes of head, face and neck

== ENCOUNTER → 2020-10-06 | Outpatient (CLI) | payer BC ==
--- NOTE | 2020-10-06 09:27 | RADONC ---
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 He is s/p chemoradiation 70 Gy in 35 fractions completed 01/27/20. He had post-treatment PET-CT on 05/09/20 demonstrating CR. He is seen today for surveillance and survivorship care. Diagnosis/Treatment History Oncologic History Mr. Pena has a history of tonsillar cancer diagnosed in 2018 when he felt a lump under the left mandible. Initially, it went down on its ownand he did not seek medical attention. The patient had recurrence in 2019 and started noticing palpable abnormality in the bottom of the left mandible, which increased over 3 months. The patient was seen by Dr. Agrawal on August 02, 2019. CT scan August 20, 2019 revealed a large lymph node and workup revealed squamous cell carcinoma on fine needle aspiration. CT scan showed 4 cm submandibular nodular mass. A PET CT scan revealed a big mass, which was p16 positive. The patient was seen by radiation oncology, Dr. Fritz, at [facility] on 10/26/2019. Dr. Fritz noted 4 cm left submandibular lymph node, as well as left tonsillar pillar enlargement and left neck adenopathy. Laryngoscopic evaluation revealed no lesion in the nasopharynx, floor of the mouth, hypopharynx or larynx. Vocal cords were normal. PET scan from 10/18/2019at [facility] revealed hypermetabolic adenopathy left neck. This included multiple lymph nodes and uptake increased in the middle lymph node SUV of 16.6. The patient was found to have more cervical lymph node showing hypermetabolic uptake at 8.3 SUV. A large submandibular shahbaz mass with SUV of 16.86, uptake left tonsil with SUV of 17.4. No evidence of distant metastatic disease. CT of the neck 11/09/2019 greater than 7 cm x 4.8 cm mass in the left submandibular region affecting the floor of the mouth, the inferior mandibular body and the submental region, as well as platysmal muscle. Extensive lymphadenopathy in the left at the level of 2 and 3, as well as level 1. CT of the chest, 11/09/2019, there were a few sub cm size pulmonary nodules of unknownclinical significance. Not hypermetabolic at PET scan. Pathology [facility],11/09/2019, core needle biopsy of left subm andibular area lymph node positive for invasive squamous cell carcinoma and basaloid features with p16 positive, p63 positive, Ki-67 is 80%. 12/09/19-01/28/20 70 Gy in 35 fractions (unilateral neck RT) with weekly carboplatin Survivorship: Test Due Next Last result Notes TSH, T4 6m post-tx, then q1y Due next visit January 2021 Carotid US q10 y post-tx Due 2029 Smoking cessation Assess annually if applicable N/A, quit >20 years ago CXR or screening CT q1y once CR confirmed Fall 2020 CBC,CMP, Lipids q1y Fall 2020 Interval History Abhijeet reports he is feeling well. Main complaint is dry mouth, insidious, carries water with him everywhere. He has no oral pain, minimal dysphagia, able to eat bread and meats. Appetite good weight stable. Does self exam of neck, no concerns. Current Therapy Surveillance Stage T2N3M0 HPV+ SCC left tonsil stage III Social History: 36 pack year former smoker quit >20 years ago Does not drink alcohol Allergies / Meds Allergies: Coded Allergies: No Known Allergies (Unverified , 12/09/19) Home Meds Active Scripts Magic Mouthwash (First-Mouthwash Blm) 1 Ea Susp, 10 ML SSP QID PRN for MUCOSITIS, #240 ML 5 Refills (Diphenhydramine/maalox/lidocaine 1:1:1) May compound if kit unavailable/not covered by insurance Prov:BJORN MATTHEW MD 12/23/19 Reported Medications Nystatin (Nystatin Oral Susp) 100,000 Unit/1 Ml Oral.susp 06/23/20 Discontinued Reported Medications Hydrochlorothiazide (Hydrochlorothiazide) 12.5 Mg Tablet, 12.5 MG PO DAILY, TAB 11/23/19 Simvastatin (Simvastatin) 40 Mg Tablet, 40 MG PO DAILY, TAB 11/23/19 Nebivolol HCl (Bystolic) 5 Mg Tablet, 5 MG PO DAILY, TAB 11/23/19 Discontinued Scripts Silver Sulfadiazine (Silvadene) 400 Gm Cream..g., 1 APLCT TOP BID for 15 Days, #400 GRAM 2 Refills apply to affected area(s) Prov:BJORN MATTHEW MD 12/09/19 Ondansetron (Ondansetron Odt) 4 Mg Tab.rapdis, 4 MG PO QIDP PRN for nausea/vomiting for 30 Days, #40 TAB 1 Refill Prov:BJONR MATTHEW MD 12/09/19 Review of Systems Review of Systems Constitutional: Denies: Chills, Fever, Weight Loss Eyes: Denies: Pain, Vision change HEENT: Denies: Head Aches, Ear Pain, Dysphagia, Sore Throat Skin: Denies: Rash Pulmonary: Denies: Dyspnea, Cough Cardiovascular: Denies: Chest Pain, Palpitations Gastrointestinal: Denies: Nausea, Vomiting Genitourinary: Denies: Dysuria Hematologic: Denies: Bruising Endocrine: Denies: Cold Intolerance Musculoskeletal: Denies: Neck pain, Back pain Neurological: Denies: Weakness, Numbness Psych: Reports: Mood Normal Physical Examination Vital Signs Ht 71" Wt 171 (from peak 220 lbs 11/22/20) BMI 22 T 98 P 71 RR 18 BP 129/83 O2 91% Pain 0 Fatigue 0 General Exam: Positive: Alert, Cooperative, No Acute Distress Eye Exam: Positive: PERRLA, Conjunctiva & lids normal, EOMI ENT EXAM: Positive: Atraumatic, Mucous membr. moist/pink, Pharynx Normal, Other ENT (Complete oral cavity exam: Mucosa pink and well hydrated, edentulous. There are no visible mucosal lesions, or tongue lesions. The tonsillar fossae are clear. There are no palpable lesions in the buccal, gingival, FOM or oral tongue. The tongue bases are free of lesions, gag reflex is strong. There are no palpable tonsillar lesions. necks demonstrate fibrosis and hy perpigementation, site of large 1B node with pale scar overlying skin. Laryngeal mobility and crepitus intact with swallow. No cervical adenopathy. Neck ROM intact); Negative: Pharyngeal Edema Chest Exam: Positive: Clear to auscultation, Normal air movement Heart Exam: Positive: Rate Normal, Regular Rhythm Abdomen Exam: Positive: Soft; Negative: Tenderness Extremity Exam: Negative: Edema Skin Exam: Positive: Nl turgor and temperature Neuro Exam: Positive: Normal Gait, Normal Speech, Cranial Nerves 3-12 NL Psych Exam: Positive: Mental status NL Diagnostic and Laboratory Diagnostic Review Radiologic images, relevant labs and pathology reports were personally reviewed and discussed with Mr. Pena. Assessment and Plan Impression Assessment Mr. 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 He is s/p chemoradiation 70 Gy in 35 fractions completed 01/27/20. He had post-treatment PET-CT on 05/09/20 demonstrating CR. He is seen today for surveillance and survivorship care. He is doing well with lingering xerostomia as his main complaint. Explained that I expect he will have some persistent dry mouth for life. Other than this he is happy with his outcome. There is no evidence of recurrent disease on exam today. I will split follow up with Dr. Burgos. I will see him next in 4 months time. At next follow up I will check TFTs for survivorship care. Performance Status ECOG 0 Plan Follow up in 4 months (splitting follow up with Dr. Burgos) TFTs at next appointment Mr. Pena was encouraged to call with questions or concerns in the interim period. Billing Statement Total time of [25] minutes was spent preparing for the visit [3], obtaining HPI [4] examining the patient [5], reviewing diagnostic tests [1], discussing management options [4], coordinating care [1], and writing this note [7]. LILIAM MEJIA MD Oct 06, 2020 09:27
== END ==
LOC: M ONCR 08:31
PROVIDERS: ATTEND General Practice
DX: C09.9 Malignant neoplasm of tonsil, unspecified (principal); C77.0 Secondary and unspecified malignant neoplasm of lymph nodes of head, face and neck

== ENCOUNTER → 2021-01-31 | Outpatient (CLI) | payer BC | LOC: M ONCR 09:53 | PROVIDERS: ATTEND General Practice | DX: C09.9 Malignant neoplasm of tonsil, unspecified (principal) ==

== ENCOUNTER → 2021-01-31 | Outpatient (CLI) | payer BC ==
[2021-01-31 10:56] LABS: BASO % 0.4 % (0.0-1.0); EOS # 0.3 10^3/uL (0.0-0.5); EOS % 7.3 % (0.0-3.0); HEMATOCRIT 38.4 % (42.0-52.0); HEMOGLOBIN 12.3 g/dl (13.5-17.5); LYMPH # 0.5 10^3/uL (1.5-5.0); LYMPH % 10.9 % (24.0-44.0); MEAN CORPUSCULAR HEMOGLOBIN 30.4 pg (27.0-33.0); MONO # 0.4 10^3/uL (0.0-0.8); MONO % 7.9 % (2.0-8.0); NEUTROPHILS # 3.4 10^3/uL (1.5-8.5); NEUTROPHILS % 72.9 % (36.0-66.0); PLATELET COUNT, AUTOMATED 208 10^3/uL (150-450); RED BLOOD COUNT 4.04 10^6/uL (4.30-6.10); WHITE BLOOD COUNT 4.7 10^3/uL (4.0-10.0)
[2021-01-31 11:34] LABS: ALBUMIN 3.7 GM/DL (3.2-5.2); ALT/SGPT 20 U/L (12-78); BILIRUBIN,TOTAL 0.4 MG/DL (0.2-1.0); BLOOD UREA NITROGEN 14 MG/DL (7-18); CALCIUM LEVEL 8.8 MG/DL (8.8-10.2); CARBON DIOXIDE LEVEL 29 MEQ/L (21-32); CHLORIDE LEVEL 104 MEQ/L (98-107); CHOLESTEROL LEVEL 204 MG/DL (<200); CHOLESTEROL RISK RATIO 2.873 (<5); CREATININE FOR GFR 0.54 MG/DL (0.70-1.30); FREE T4 0.81 NG/DL (0.76-1.46); GLOMERULAR FILTRATION RATE > 60.0 (>49); GLUCOSE, FASTING 93 MG/DL (70-100); HDL CHOLESTEROL 71 MG/DL (>40); LDL CHOLESTEROL 123 MG/DL (<100); NON-HDL-C 133 MG/DL; POTASSIUM SERUM 4.1 MEQ/L (3.5-5.1); SODIUM LEVEL 138 MEQ/L (136-145); TOTAL PROTEIN 6.8 GM/DL (6.4-8.2); TRIGLYCERIDES LEVEL 52 MG/DL (<150)
== END ==
LOC: M ONCR 09:20
PROVIDERS: ATTEND General Practice
DX: C09.9 Malignant neoplasm of tonsil, unspecified (principal); C77.0 Secondary and unspecified malignant neoplasm of lymph nodes of head, face and neck; R91.8 Other nonspecific abnormal finding of lung field; Z87.891 Personal history of nicotine dependence; Z92.21 Personal history of antineoplastic chemotherapy
CPT/HCPCS: 31575; 36415; 80053; 80061; 84439; 84443; 85025; G0463

== ENCOUNTER → 2021-05-23 | Outpatient (CLI) | payer BC ==
--- NOTE | 2021-05-23 12:06 | RADONC ---
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 He is s/p chemoradiation 70 Gy in 35 fractions completed 01/27/20. He had post-treatment PET-CT on 05/09/20 demonstrating CR. He is seen today for surveillance and survivorship care. Diagnosis/Treatment History Oncologic History Mr. Pena has a history of tonsillar cancer diagnosed in 2018 when he felt a lump under the left mandible. Initially, it went down on its ownand he did not seek medical attention. The patient had recurrence in 2019 and started noticing palpable abnormality in the bottom of the left mandible, which increased over 3 months. The patient was seen by Dr. Agrawal on August 02, 2019. CT scan August 20, 2019 revealed a large lymph node and workup revealed squamous cell carcinoma on fine needle aspiration. CT scan showed 4 cm submandibular nodular mass. A PET CT scan revealed a big mass, which was p16 positive. The patient was seen by radiation oncology, Dr. Fritz, at [facility] on 10/26/2019. Dr. Fritz noted 4 cm left submandibular lymph node, as well as left tonsillar pillar enlargement and left neck adenopathy. Laryngoscopic evaluation revealed no lesion in the nasopharynx, floor of the mouth, hypopharynx or larynx. Vocal cords were normal. PET scan from 10/18/2019at [facility] revealed hypermetabolic adenopathy left neck. This included multiple lymph nodes and uptake increased in the middle lymph node SUV of 16.6. The patient was found to have more cervical lymph node showing hypermetabolic uptake at 8.3 SUV. A large submandibular shahbaz mass with SUV of 16.86, uptake left tonsil with SUV of 17.4. No evidence of distant metastatic disease. CT of the neck 11/09/2019 greater than 7 cm x 4.8 cm mass in the left submandibular region affecting the floor of the mouth, the inferior mandibular body and the submental region, as well as platysmal muscle. Extensive lymphadenopathy in the left at the level of 2 and 3, as well as level 1. CT of the chest, 11/09/2019, there were a few sub cm size pulmonary nodules of unknownclinical significance. Not hypermetabolic at PET scan. Pathology [facility],11/09/2019, core needle biopsy of left submandibular area lymph node positive for invasive squamous cell carcinoma and basaloid features with p16 positive, p63 positive, Ki-67 is 80%. 12/09/19-01/28/20 70 Gy in 35 fractions (unilateral neck RT) with weekly carboplatin Survivorship: Test Due Next Last result Notes TSH, T4 6m post-tx, then q1y 01/202201/31/21 TSH 3.8 T4 0.81 Carotid US q10 y post-tx Due 2029 Smoking cessation Assess annually if applicable N/A, quit >20 years ago CXR or screening CT q1y once CR confirmed Winter 2020 CXR CBC,CMP, Lipids q1y 01/202201/31/21 LDL elevated started on statin per PCP Interval History Abhijeet feels well. Dry mouth stable. No dysphagia. No oral pain. Appetite and weight stable. Saw Dr. Burgos 2 months ago. Current Therapy Surveillance Stage T2N3M0 HPV+ SCC left tonsil stage III Social History: 36 pack year former smoker quit >20 years ago Does drink 1-2 drinks per month Allergies / Meds Allergies: Coded Allergies: No Known Allergies (Unverified , 12/09/19) Home Meds Reported Medications Nebivolol HCl (Bystolic) 10 Mg Tablet, 1 TAB PO DAILY for 30 Days, #30 TAB 01/31/21 Review of Systems Review of Systems Constitutional: Denies: Fever, Fatigue, Weight Loss Eyes: Denies: Pain HEENT: Reports: Post Nasal Drip; Denies: Head Aches, Ear Pain, Dysphagia, Sore Throat Skin: Denies: Rash Pulmonary: Denies: Dyspnea, Cough Cardiovascular: Denies: Chest Pain, Palpitations Gastrointestinal: Denies: Abdominal Pain Hematologic: Denies: Bruising Endocrine: Denies: Cold Intolerance Musculoskeletal: Denies: Neck pain, Back pain Neurological: Denies: Weakness, Numbness Psych: Reports: Mood Normal Physical Examination Vital Signs Wt 179 lbs T 97.9 P 69 RR 18 BP 115/67 O2 100% Pain 0 Fatigue 0 General Exam: Alert, Cooperative, No Acute Distress Eye Exam: PERRLA, EOMI ENT EXAM: Other ENT (Complete oral cavity exam performed: The oral mucosa is pink and well-hydrated. There are no palpable or visible abnormalities in the buccal mucosa, alveolar ridges oral tongue, BOT, and FOM on bimanual exam. There is no trismus. There is no evidence of ORN or mucosal interuption. There is mathias bmental fibrosis and pigmentation changes L>R. Left side in particular is woody fibrosis. Neck ROM intact. No palpable cervical adenopathy. No palpable supraclavicular adenopathy. Laryngeal crepitus preserved. Thyroid carilage elevates appropriately with swallowing) Chest Exam: Clear to auscultation, Normal air movement Heart Exam: Rate Normal, Regular Rhythm Abdomen Exam: Soft Extremity Exam: Negative: Edema Skin Exam: Nl turgor and temperature Neuro Exam: Normal Gait, Normal Speech, Cranial Nerves 3-12 NL Psych Exam: Mental status NL Diagnostic and Laboratory Diagnostic Review Radiologic images, relevant labs and pathology reports were personally reviewed and discussed with Mr. Pena. Assessment and Plan Impression Assessment Mr. 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 He is s/p chemoradiation 70 Gy in 35 fractions completed 01/27/20. He had post-treatment PET-CT on 05/09/20 demonstrating CR. He is seen today for surveillance and s vivorship care. He is doing well, MARYELLEN, current on all labs, laryngoscopy was deferred today. Will scope at next visit here in September 2021. Will also obtain CXR at that time due to smoking history. Performance Status ECOG 0 Plan Follow up in 4 months Mr. Pena was encouraged to call with questions or concerns in the interim period. Billing Statement Total time of [32] minutes was spent preparing for the visit [2], obtaining HPI [6], examining the patient [6], reviewing diagnostic tests [4], discussing management options [6], coordinating care [1], and writing this note [7]. LILIAM MEJIA MD May 23, 2021 12:06
== END ==
LOC: M ONCR 11:25
PROVIDERS: ATTEND General Practice
DX: C09.9 Malignant neoplasm of tonsil, unspecified (principal); C77.0 Secondary and unspecified malignant neoplasm of lymph nodes of head, face and neck; Z87.891 Personal history of nicotine dependence; Z92.21 Personal history of antineoplastic chemotherapy; Z92.3 Personal history of irradiation

== ENCOUNTER → 2021-09-26 | Outpatient (CLI) | payer BC | LOC: M ONCR 11:32 | PROVIDERS: ATTEND General Practice | DX: C09.0 Malignant neoplasm of tonsillar fossa (principal); C77.0 Secondary and unspecified malignant neoplasm of lymph nodes of head, face and neck; Z87.891 Personal history of nicotine dependence; Z92.21 Personal history of antineoplastic chemotherapy; Z92.3 Personal history of irradiation | CPT/HCPCS: 31575; G0463 ==

== ENCOUNTER → 2022-01-09 | Outpatient (CLI) | payer BC | LOC: M ONCR 10:52 | PROVIDERS: ATTEND General Practice | DX: C09.0 Malignant neoplasm of tonsillar fossa (principal); C77.0 Secondary and unspecified malignant neoplasm of lymph nodes of head, face and neck; R91.8 Other nonspecific abnormal finding of lung field; Z87.891 Personal history of nicotine dependence; Z92.21 Personal history of antineoplastic chemotherapy; Z92.3 Personal history of irradiation ==

== ENCOUNTER → 2022-10-24 | Outpatient (CLI) | payer BC ==
[~2022-10-24] MED LIST changes: +NYST-38; -NYST50SS
== END ==
LOC: M ONCR 13:32
PROVIDERS: ATTEND General Practice
DX: R07.0 Pain in throat (principal)

== ENCOUNTER → 2024-03-03 | Outpatient (CLI) | payer BC ==
[~2024-03-03] MED LIST changes: +BYST1TAB2 PO; -BYST5TAB2 PO; +NYST-38 PO; +ONDA-282 PO; -ONDA4TAB6 PO
== END ==
LOC: M ONCR 11:19
PROVIDERS: ATTEND General Practice
DX: Z08 Encounter for follow-up examination after completed treatment for malignant neoplasm (principal); Z85.818 Personal history of malignant neoplasm of other sites of lip, oral cavity, and pharynx; Z71.2 Person consulting for explanation of examination or test findings; Z87.891 Personal history of nicotine dependence; Z92.21 Personal history of antineoplastic chemotherapy; Z92.3 Personal history of irradiation; Z79.899 Other long term (current) drug therapy
CPT/HCPCS: 31575; G0463

== ENCOUNTER → 2024-11-11 | Outpatient (CLI) | payer MEDICARE ==
[~2024-11-11] MED LIST changes: -BYST10TA2 PO; +BYST1TAB3 PO
== END ==
LOC: M ONCR 13:45
PROVIDERS: ATTEND General Practice
DX: Z08 Encounter for follow-up examination after completed treatment for malignant neoplasm (principal); Z85.818 Personal history of malignant neoplasm of other sites of lip, oral cavity, and pharynx; J02.9 Acute pharyngitis, unspecified; Z87.891 Personal history of nicotine dependence; R09.82 Postnasal drip; Z79.899 Other long term (current) drug therapy; Z92.21 Personal history of antineoplastic chemotherapy; Z92.3 Personal history of irradiation
CPT/HCPCS: 31575; G0463